=== PATIENT | male | born 1960 ===

== ENCOUNTER 2018-03-17 22:36 | Emergency (ER) | payer SELFPAY ==
[2018-03-17 23:09] VITALS: O2SAT 100
--- NOTE | 2018-03-17 23:36 | C.PDOC ---
History Of Present Illness 57 year old male presents to the ER with a complaint of left shoulder pain after he fell [employer]. Patient states he was feeling "drowsy" from medications he was given in residential. Denies LOC or other complaints. Time Seen by Provider: 03/17/18 23:10 Chief Complaint (Nursing): Upper Extremity Problem/Injury History Per: Patient History/Exam Limitations: no limitations Onset/Duration Of Symptoms: Hrs Current Symptoms Are (Timing): Still Present Recent travel outside of the [place]: No Past Medical History Reviewed: Historical Data, Nursing Documentation, Vital Signs Vital Signs: Last Vital Signs Temp 98.1 F 03/17/18 23:06 Pulse 71 03/17/18 23:06 Resp 20 03/17/18 23:06 BP 129/85 03/17/18 23:06 Pulse Ox 100 03/17/18 23:06 Family History: States: Unknown Family Hx - Social History Hx Alcohol Use: Yes Hx Substance Use: No - Immunization History Hx Tetanus Toxoid Vaccination: No Hx Influenza Vaccination: No Hx Pneumococcal Vaccination: No Review Of Systems Constitutional: Negative for: Fever, Chills Cardiovascular: Negative for: Chest Pain, Palpitations Respiratory: Negative for: Cough, Shortness of Breath Gastrointestinal: Negative for: Nausea, Vomiting Musculoskeletal: Positive for: Shoulder Pain (Left) Skin: Negative for: Rash Neurological: Negative for: Weakness, Numbness Physical Exam - Physical Exam Appears: Non-toxic, Other (Awake, alert) Skin: Normal Color, Warm, Dry Head: Atraumatic, Normacephalic Eye(s): bilateral: Normal Inspection Oral Mucosa: Moist Neck: Normal, No Midline Cervical Tenderness, No Paracervical Tenderness, Supple Chest: Symmetrical, No Tenderness Cardiovascular: Rhythm Regular Respiratory: Normal Breath Sounds, No Rales, No Rhonchi, No Wheezing Gastrointestinal/Abdominal: Soft, No Tenderness Extremity: Normal ROM (x4), Tenderness (Left shoulder), Capillary Refill (<2 seconds), No Deformity, No Swelling Pulses: Left Radial: Normal, Right Radial: Normal Neurological/Psych: Oriented x3, Normal Speech, Normal Motor, Normal Sensation Gait: Steady ED Course And Treatment O2 Sat by Pulse Oximetry: 100 Medical Decision Making Medical Decision Making: xr neg. pt in nad. states fell "because he was sleepy". declines any w/u in er. steady gait. asking for dc. Disposition - Disposition Referrals: Tien Chauhan MD [Staff Provider] - Disposition: HOME/ ROUTINE Disposition Time: 12:00 Condition: STABLE Additional Instructions: return to er with worsening symptoms or concerns. Prescriptions: RX: Naproxen 500 mg PO BID PRN #14 tab PRN Reason: Pain, Mild (1-3) Instructions: Shoulder Sprain (DC) Forms: Mirego (Slovenian) - Clinical Impression Clinical Impression: Shoulder sprain - Scribe Statement The provider has reviewed the documentation as recorded by the Scribisak Grimm All medical record entries made by the Melissaibe were at my direction and personally dictated by me. I have reviewed the chart and agree that the record accurately reflects my personal performance of the history, physical exam, medical decision making, and the department course for this patient. I have also personally directed, reviewed, and agree with the discharge instructions and disposition.
[2018-03-18 00:10] VITALS: BP 130/89; PULSE 75; RESP 18; TEMP 97.9
--- NOTE | 2018-03-18 14:18 | RAD ---
Date of service: 03/17/2018 PROCEDURE: Radiographs of the Left Shoulder HISTORY: trauma COMPARISON: No prior. FINDINGS: BONES: Normal. No fracture. 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 .. SOFT TISSUES: Small calcification within the soft tissues adjacent to the greater tuberosity likely related to calcific tendinitis. OTHER FINDINGS: None. IMPRESSION: No evidence of acute displaced fracture nor dislocation. 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 Findings suggest mild calcific tendinitis...
--- NOTE | 2018-03-18 14:32 | RAD ---
PROCEDURE: Radiographs of the left humerus. HISTORY: trauma COMPARISON: Comparison made with concurrent radiographs of the left shoulder. FINDINGS: BONES: Normal. No fracture or focal lesion. Note that the distal margin of the left radius incompletely visualized on internal rotation SOFT TISSUES: Soft tissues appear grossly unremarkable without evidence of subcutaneous emphysema opaque foreign bodies OTHER FINDINGS: None. IMPRESSION: No evidence of acute displaced fracture dislocation..
== END 2018-03-18 00:11 | disposition home or self-care (01) ==
LOC: C.ER 22:36
DX: S43.402A Unspecified sprain of left shoulder joint, initial encounter (principal); W19.XXXA Unspecified fall, initial encounter